=== PATIENT | female | born 1980 | race Caucasian/White ===

== ENCOUNTER 2016-12-24 08:00 | Inpatient (IN) | payer OTHER ==
[~2016-12-24] VITALS: Ht 165.1 cm; Wt 72.6 kg
--- NOTE | ~2016-12-24 | PN ---
Unit #: [id number] #: [id number] Patient: SABINE ARGUELLES [id number] [facility] [address] [place] [address] [id number] MR#: [id number] NAME: SABINE ARGUELLES ROOM: 80 Age: 36 Sex: F Admission Date: 12/24/2016 : 1980 Attending Physician: Bradley Guevara M.D. Admitting Physician: Bradley Guevara M.D. Primary Care Physician: Primary Care Physician Elis BRYAN NOTES DATE December 25, 2016 DISCUSSION Ms. Arguelles is a 36-year-old white female, who was seen today and chart was reviewed and the case was discussed with the staff. She remains anxious, withdrawn, depressed, and rather seclusive to herself. Meanwhile, she has been cooperative with the treatment recommendations, and has been taking the medications and tolerating them fairly well with no reported side effects. MENTAL STATUS EXAMINATION Young white female, who was casually dressed with fair personal hygiene and appears to be in no acute distress or discomfort. She was awake and alert on interaction with intact orientation. Her mood was anxious with a congruent affect. Her speech is slow and goal-directed. She denies any suicidal or homicidal ideations. Her insight and judgment remain slightly impaired. TREATMENT PLAN 1. We will continue her on her current medications and treatment protocol, and will monitor her response to the medications, and make further adjustments as needed. 2. We will continue to followup. Dictated by... Theresa Denny/zaki TD: 12/26/2016 07:22 JOB #: [id number] Unit #: [id number] #: [id number] Patient: SABINE ARGUELLES PROGRESS NOTES Page 1 of 1 X Bradley Guevara MD PROGRESS NOTE
--- NOTE | ~2016-12-24 | DS ---
Unit #: [id number] #: [id number] Patient: SABINE ARGUELLES [id number] [facility] [address] [place] [address] [id number] MR#: [id number] NAME: SABINE ARGUELLES ROOM: [facility] Age: 36 Sex: F Admission Date: 12/24/2016 : 1980 Discharge Date: 12/28/2016 Attending Physician: Bradley Guevara M.D. Primary Care Physician: Primary Care Physician No DISCHARGE SUMMARY IDENTIFYING DATA Ms. Arguelles is a 36-year-old single white female, who is a resident of [place], [place], and was self-referred to the hospital on a voluntary basis. DISCHARGE DIAGNOSES Psychiatric: Major depressive disorder, recurrent, moderate, without psychotic features. Opioid dependence, moderate, and acute withdrawals. Methamphetamine dependence, moderate. Medical: None. Stressors: Moderate psychosocial stressors. HISTORY OF PRESENT ILLNESS Please see initial psychiatric evaluation for details. PAST PSYCHIATRIC HISTORY Please see initial psychiatric evaluation for details. PAST MEDICAL HISTORY Please see initial psychiatric evaluation for details. HOSPITAL COURSE The patient was admitted to the adult psychiatric and chemical dependency unit at [facility] beronica Lin and was oriented to the hospital environment. Routine p.r.n. medications were initiated, and she was started back on her home medications, and opioid detox protocol was initiated and she was also started on Remeron as an antidepressant. The patient was initially seen to be very anxious, withdrawn, and rather seclusive to herself. However, she was able to come out of the detox without any complications and was willing to continue treatment on an outpatient basis, and as such, it was decided that she will be kept on her current medications and will be discharged home and will continue treatment on an outpatient basis. DISCHARGE MEDICATION Remeron 15 mg at bedtime for depression. DISCHARGE CONDITION Stable. PROGNOSIS Fair. Unit #: [id number] #: [id number] Patient: SABINE ARGUELLES Dictated by... Theresa Denny/gwen TD: 12/28/2016 08:06 JOB #: [id number] DISCHARGE SUMMARY Page 1 of 1 X Bradley Guevara MD DISCHARGE SUMMARY
--- NOTE | ~2016-12-24 | PA ---
Unit #: [id number] #: [id number] Patient: SABINE ARGUELLES [id number] [facility] [address] [place] [address] [id number] MR#: [id number] NAME: SABINE ARGUELLES ROOM: P180 Age: 36 Sex: F Admission Date: 12/24/2016 : 1980 Date of Assessment: 12/24/2016 Attending Physician: Bradley Guevara M.D. Admitting Physician: Bradley Guevara M.D. Primary Care Physician: Primary Care Physician No PSYCHIATRIC ASSESSMENT DATE OF SERVICE 12/24/2016. IDENTIFYING DATA Ms. Arguelles is a 36-year-old single white female, who is a resident of [place], [place], and was self-referred to the hospital on a voluntary basis. CHIEF COMPLAINT "I'm suicidal. I just want to shoot some heroin and not wake up from it." HISTORY OF PRESENT ILLNESS Ms. Arguelles is a 36-year-old white female with history of substance abuse and mood disorder, who was self-referred to the hospital reporting increasing depression, anxiety, and suicidal ideations and a plan to shoot herself with heroin and not wake up, "I'm having these thoughts and that is the plan. I'm very depressed. My mom in 2014 and I have not really dealt with it and I'm just hopeless and I have nothing. I'm homeless. I lost all of my kids; my oldest two are with my sister, one with her father, and the other two with their grandparents. Right after I lost my mom, I lost custody of my kids. I have been in and out of correction and shooting dope ever since then and I have been using heroin and ice. For the heroin, I use 0.5 g a day at this time for about 2 months and I stopped using when I was in correction from May until about 2 months ago. For the ice, I use about 0.5 g for the past 2 months and I last used these about 12 hours ago. I feel fatigued. I'm sick to my stomach. I've a lot of anxiety. I think that I'm bipolar, one minute I'm fine and the next minute I'm suicidal and I've these outbursts. This happens almost on a daily basis." The patient does report increasing mood instability with agitation, irritability, impulsivity, feelings of hopelessness and helplessness, and suicidal ideations, and as such, a recommendation for inpatient level of care for safety and stabilization was made and the patient was stepped up to the inpatient unit. SUBSTANCE ABUSE HISTORY The patient reports extensive history of substance abuse and dependence including alcohol, cannabis, cocaine, acid, opioids, and methamphetamine, and currently, IV heroin and IV methamphetamine have been her drug of choice. PAST PSYCHIATRIC HISTORY The patient has had a history of inpatient chemical dependency treatment at [facility] in the past, and review of the medical records Unit #: [id number] #: [id number] Patient: SABINE ARGUELLES indicate currently she is not active in any treatment program, is not seeing a psychiatrist, and is not taking any psychotropic medications. PAST MEDICAL HISTORY No acute or chronic medical illnesses. ALLERGIES Penicillin. CURRENT MEDICATIONS None. PERSONAL AND SOCIAL HISTORY A 36-year-old white female, who reports that she is single, unemployed, and essentially homeless and has poor social support system. MENTAL STATUS EXAMINATION Young white female, who was casually dressed with fair personal hygiene, appears to be in no acute distress or discomfort. She was awake and alert on interaction with intact orientation to time, place, and person. Her mood was anxious with a congruent affect. Her speech was slow and goal directed. She reports having suicidal ideations, but denies any homicidal ideations and also denies any auditory or visual hallucinations. Her insight and judgment remain significantly impaired. DIAGNOSTIC IMPRESSION Psychiatric: Major depressive disorder, recurrent, moderate, without psychotic features; opioid dependence, moderate, in acute withdrawal; and methamphetamine dependence, moderate. Medical: None. Stressors: Moderate psychosocial stressors. TREATMENT PLAN 1. The patient has presented with a history of mood disorder and psychosis and has been decompensating and will need inpatient hospitalization for safety and stabilization. We will start her back on her home medications. We will adjust the medications and monitor response. 2. Supportive therapy was provided to the patient. 3. Safe, structured, and nourishing environment will be provided. ESTIMATED LENGTH OF STAY 5 to 7 days. ABILITY TO HELP SELF Limited. WILLINGNESS TO HELP SELF The patient appears to be willing to help self. STRENGTHS 1. Communicative. 2. Cooperative. PROBLEMS 1. Chronic dysphoric symptoms. 2. Chronic chemical dependency. 3. Poor social support system. DISCHARGE CRITERIA Unit #: [id number] #: [id number] Patient: SABINE ARGUELLES This will be contingent upon the patient's ability to show resolution of her depression and anxiety and her ability to stay safe to herself, particularly after discharge from the hospital. Dictated by... Theresa Denny/gwen TD: 12/25/2016 12:15 JOB #: [id number] PSYCHIATRIC ASSESSMENT Page 1 of 1 X Bradley Guevara MD X PSYCHIATRIC ASSESSMENT
--- NOTE | ~2016-12-24 | PN ---
Unit #: [id number] #: [id number] Patient: SABINE ARGUELLES [id number] [facility] [address] [place] [address] [id number] I MR#: [id number] NAME: SABINE ARGUELLES ROOM: [facility] Age: 36 Sex: F Admission Date: 12/24/2016 : 1980 Attending Physician: Bradley Guevara M.D. Admitting Physician: Bradley Guevara M.D. Primary Care Physician: Primary Care Physician Elis CANADA PROGRESS NOTES DATE 12/27/2016 DISCUSSION Ms. Arguelles is a 36-year-old white female who was seen today and chart was reviewed and case was discussed with the staff. She has been anxious, withdrawn and rather seclusive to herself and has not been interacting or communicating though does appear to be coming out of the detox without any complication, has been taking medications and tolerating them fairly well with no reported side effects. MENTAL STATUS EXAMINATION Young white female who was casually dressed with fair personal hygiene, appears to be in no acute distress or discomfort. She was awake and alert on interaction with intact orientation. Her mood was anxious with congruent affect. Her speech was slow and goal-directed. She denies any suicidal or homicidal ideations. Also, denies any auditory or visual hallucinations. Her insight and judgement remains slightly impaired. TREATMENT PLAN 1. We will continue her on her current medications and treatment protocol. We will monitor her response to the medication and make further adjustments as needed. 2. We will continue to follow up. Dictated by... Theresa Denny/luciano TD: 12/27/2016 22:44 JOB #: [id number] Unit #: [id number] #: [id number] Patient: SABINE ARGUELLES PROGRESS NOTES Page 1 of 1 X Bradley Guevara MD PROGRESS NOTE
--- NOTE | ~2016-12-24 | PN ---
Unit #: [id number] #: [id number] Patient: SABINE ARGUELLES [id number] [facility] [address] [place] [address] [id number] MR#: [id number] NAME: SABINE ARGUELLES ROOM: P180 Age: 36 Sex: F Admission Date: 12/24/2016 : 1980 Attending Physician: Bradley Guevara M.D. Admitting Physician: Bradley Guevara M.D. Primary Care Physician: Primary Care Physician Elis BRYAN NOTES DATE 12/26/2016 DISCUSSION Ms. Arguelles is a 36-year-old white female with substance abuse and mood disorder who was seen today and chart was reviewed and case was discussed with the staff. She remains anxious, withdrawn and depressed and rather seclusive to herself withdrawn minimal interaction and blunted affect and poor eye contact and has been isolative and not really coming out socializing or interacting carrying on much conversation and has been exhibiting some (1) depressive symptoms. Meanwhile, she has been taking medications and tolerating them fairly well with no reported side effects. MENTAL STATUS EXAMINATION Young white female who was casually dressed with fair personal hygiene, appears to be in no acute distress or discomfort. She was awake and alert with impaired attention and concentration. Her mood was anxious and depressed with congruent affect. Her speech was slow and restricted in content. She reports having suicidal ideation but denies any homicidal ideation. Her insight and judgement remains slightly impaired. TREATMENT PLAN 1. We will continue her on her current medications and treatment protocol. We will monitor her response and make further adjustments as needed. 2. We will continue to follow up. Dictated by... Theresa Denny/luciano TD: 12/26/2016 23:52 JOB #: [id number] Unit #: [id number] #: [id number] Patient: SABINE ARGUELLES RANDI NOTES Page 1 of 1 X Bradley Guevara MD PROGRESS NOTE
--- NOTE | ~2016-12-24 | HP ---
Unit #: [id number] #: [id number] Patient: CONCHITA MENDEZ [id number] [place] [address] [id number] MR#: [id number] NAME: CONCHITA MENDEZ ROOM: P180 Age: 36 Sex: F Admission Date: 12/24/2016 : 1980 Attending Physician: Bradley Guevara M.D. Admitting Physician: Bradley Guevara M.D. Primary Care Physician: Primary Care Physician No HISTORY AND PHYSICAL HISTORY OF PRESENT ILLNESS Conchita is a 36 year old admitted to [facility] with depression because of her polysubstance abuse which includes heroin and methamphetamine. PAST MEDICAL HISTORY Long history of illicit substance abuse. PAST SURGICAL HISTORY Nothing reported. ALLERGIES Penicillin. SOCIAL HISTORY Smokes one pack per day. Drinks alcohol rarely. Admits to a long history of illicit substance abuse. FAMILY HISTORY Medically noncontributory. REVIEW OF SYSTEMS CONSTITUTIONAL: No fever or chills. HEENT: Denies any sore throat, ear pain or runny nose. CARDIOVASCULAR: Denies chest pain, irregular heart rhythm or palpitations. CHEST: Denies shortness of breath or cough. No hemoptysis. GASTROINTESTINAL: Denies nausea, vomiting, diarrhea or chronic constipation. ENDOCRINE: Denies history of increased thirst or urination. No recent significant weight loss or gain. GENITOURINARY: Denies dysuria, frequency, or hematuria. SKIN: Denies any rashes. HEMATOLOGIC: Denies history of increased bleeding or bruising. MUSCULOSKELETAL: Denies any hot, swollen joints. No generalized muscle pain. NEUROLOGIC: Denies problems with vision or speech. No frequent, severe headaches. No numbness, tingling or weakness in any extremities. Denies loss of bladder or bowel control. CURRENT MEDICATIONS Detox protocol PHYSICAL EXAMINATION Unit #: [id number] #: [id number] Patient: CONCHITA MENDEZ GENERAL: Alert, well-nourished, in no apparent distress. VITAL SIGNS: Blood pressure 120/70, heart rate 80, respirations 16, temperature 98.6. WEIGHT: 160. HEIGHT: 5 foot 5 inches. SKIN: Warm and dry without rash or lesion. HEENT: Normocephalic. TMs not viewed. Oral and nasal passages clear. Conjunctivae clear. Pupils equal, round and reactive to light and accommodation. Extraocular movements intact. NECK: Supple without lymphadenopathy or thyromegaly. HEART: Regular rate and rhythm without murmur. LUNGS: Clear. ABDOMEN: Soft, nontender. : Not done. EXTREMITIES: No evidence of cyanosis, clubbing or edema. Moves all extremities without focal deficit. NEUROLOGICAL: Grossly within normal limits. Cranial Nerves: II: Visual krueger are intact. III, IV AND : Extraocular movements are intact. Pupils are equal, round and reactive to light. V: Facial sensation is grossly normal. VII: Facial movements and expression are normal. VIII: Auditory acuity grossly intact. IX, X: Uvula is midline. Phonation is normal. XI: Patient shrugs shoulders and turns head normally. XII: Tongue protrudes in the midline. Sensory and Motor Function: Sensory and motor sensation is grossly normal. Motor: moves all extremities well. Coordination: Gait is normal. Deep Tendon Reflexes: Intact. IMPRESSION Psychiatric admission. RECOMMENDATIONS PSYCHIATRIC: Per psychiatrist. MEDICAL: I see no contraindications to participating in facility's activities. MEDICAL PROGNOSIS Good. MEDICAL CONDITION Stable. Dictated by... Meena Diaz P.A.-C. for Theresa Mayorga/luciano TD: 12/25/2016 00:52 JOB #: [id number] Unit #: [id number] #: [id number] Patient: CONCHITA MENDEZ HISTORY AND PHYSICAL Page 1 of 1 X Meena Diaz HISTORY AND PHYSICAL
[~2016-12-24 08:00] MED LIST: ACETAMINOPHEN; BACTRIM DS TABL1 TA1 PO; FLEXERIL10 M1 PO; KEFLEX500 MG PO; LORTAB 5/500 TA1 TA2 PO; METHADONE PO; NAPROSYN500 MG PO; NO MEDICATIONS; PRENATAL1 TA1 PO; ZOFRAN ODT4 MG PO
[2016-12-25 09:40] LABS: BASOPHIL% 0.5 % (0-2.5); EOSINOPHIL# 0.3 X10e3 (0-0.7); EOSINOPHIL% 4.6 % (0.0-7.0); HEMATOCRIT 41.3 % (35.0-45.0); HEMOGLOBIN 13.2 gm/dL (12.0-16.0); LYMPHOCYTE# 2.3 X10e3 (1.0-3.5); LYMPHOCYTE% 39.2 % (17.0-45.0); MEAN CELL VOLUME 92.5 FL (83-96); MEAN CORPUSCULAR HEMOGLOBIN 29.6 PG (28-34); MEAN PLATELET VOLUME 9.9 FL (6.5-11.5); MONOCYTE# 0.3 X10e3 (0-1.0); MONOCYTE% 5.9 % (3.0-12.0); NEUTROPHIL# 2.9 X10e3 (1.5-7.1); NEUTROPHIL% 49.8 % (40-75); PLATELET COUNT 255 X10e3 (140-420); RED BLOOD COUNT 4.47 X10e (3.90-5.30); RED CELL DISTRIBUTION WIDTH 12.6 % (11.0-15.5); WHITE BLOOD COUNT 5.8 X10e3 (4.0-10.5)
[2016-12-25 10:00] LABS: DIFF IND NO
[2016-12-25 10:03] LABS: ALBUMIN SERUM 3.6 g/dL (3.5-5.0); BILIRUBIN,TOTAL 0.8 mg/dL (0.2-2.0); BUN/CREATININE RATIO 18.57; CALCIUM SERUM 8.9 mg/dL (8.4-10.2); CREATININE SERUM 0.7 mg/dL (0.6-1.4); GLOM FILT RATE Estimated 110.7 mL/min (>60); POTASSIUM 3.8 mmol/L (3.5-5.1)
== END 2016-12-28 09:00 | DRG 885 ==
LOC: P1E 11:08
PROVIDERS: Psychiatry & Neurology Psychiatry
PROC: HZ2ZZZZ Detoxification Services for Substance Abuse Treatment (ICD-10-PCS; principal; 2016-12-25)
DX: F33.1 Major depressive disorder, recurrent, moderate (principal); F15.20 Other stimulant dependence, uncomplicated; F91.3 Oppositional defiant disorder; Z88.0 Allergy status to penicillin; F17.210 Nicotine dependence, cigarettes, uncomplicated
CPT/HCPCS: 80053; 84703; 85025; 86592